=== PATIENT | male | born 1980 | race Two or more races ===

== ENCOUNTER 2016-12-05 10:06 | Emergency (ER) | payer OTHER ==
[2016-12-05] MEDS ORDERED: NORCO 5-325 TA1 EACH PO (11:51)
== END 2016-12-05 12:10 ==
LOC: EDMED 10:06
PROC: 2W3KX1Z Immobilization of Left Finger using Splint (ICD-10-PCS; principal; 2016-12-05)
DX: S63.285A Dislocation of proximal interphalangeal joint of left ring finger, initial encounter (principal); W22.8XXA Striking against or struck by other objects, initial encounter; Y92.69 Other specified industrial and construction area as the place of occurrence of the external cause; Y99.0 Civilian activity done for income or pay